=== PATIENT | female | born 1985 | race Caucasian/White ===

== ENCOUNTER → 2020-07-11 08:38 | Outpatient (CLI) | payer OTHER, SELFPAY ==
[2020-07-11 10:33] LABS: Vitamin D,25 Hydroxy 77.1 ng/mL
[2020-07-11 10:44] LABS: Hemoglobin A1c 4.9 % (3.8-5.6)
[2020-07-11 11:03] LABS: CRP, High Sensitivity Cardiac 8.34 mg/L; Cholesterol 189 mg/dL (200); High Density Lipoprotein 53 mg/dL; Triglycerides 49 mg/dL; Very Low Density Lipoprotein 10 mg/dL (5-40)
== END ==
PROVIDERS: Visit Provider Family Medicine
DX: E55.9 Vitamin D deficiency, unspecified (principal); E66.01 Morbid (severe) obesity due to excess calories; Z82.49 Family history of ischemic heart disease and other diseases of the circulatory system
CPT/HCPCS: 36415; 80061; 82306; 83036; 86141